=== PATIENT | female | born 1955 | race Caucasian/White ===

== ENCOUNTER → 2017-02-17 10:04 | Emergency (ER) | payer SELFPAY | END | disposition home or self-care (01) | LOC: UCCORT 10:04 → MERGE 10:04 → OHCORT 10:04 | DX: Z00.00 Encounter for general adult medical examination without abnormal findings (principal) ==

== ENCOUNTER → 2019-04-23 10:18 | Emergency (ER) | payer SELFPAY | END | disposition home or self-care (01) | LOC: OHCORT 10:18 | DX: Z02.1 Encounter for pre-employment examination (principal) ==